=== PATIENT | male | born 1960 | race Caucasian/White ===

== ENCOUNTER 2018-01-31 05:28 | Outpatient (CLI) | payer BC, OTHER ==
[~2018-01-31] VITALS: Ht 185.4 cm; Wt 136.1 kg
[~2018-01-31 05:28] MED LIST: LISI20TA; OMG1KC
[2018-01-31] MEDS ORDERED: VALS1TAB PO (14:01)
[2018-01-31] MEDS ORDERED: NAPR-915 PO (14:01)
[2018-01-31] MEDS ORDERED: FLUT9.9S NS (14:01)
== END 2018-01-31 14:05 ==
LOC: PREOP 05:28
PROVIDERS: ATTEND Specialist
DX: Z01.818 Encounter for other preprocedural examination (principal); H26.40 Unspecified secondary cataract

== ENCOUNTER 2018-02-02 06:52 | Day surgery (SDC) | payer BC, OTHER ==
[~2018-02-02] VITALS: Ht 185.4 cm; Wt 136.1 kg
[~2018-02-02 06:52] MED LIST changes: +FLUT9.9S NS; +NAPR-915 PO; +VALS1TAB PO
[2018-02-02 06:55] VITALS: BP 123/80
[2018-02-02] MEDS: TROPICAMIDE 1% OPH SOLN (MYDRIACYL) 15 ML BTL OU PRN ×4 (07:08→07:35)
[2018-02-02] MEDS: PHENYLEPHRINE 10% OPHTH (NEO-SYN) 5 ML BTL OU PRN ×4 (07:08→07:35)
[2018-02-02] MEDS: TETRACAINE 0.5% OPHTH SOLN 4 ML BTL (SINGLE DOSE ONLY) OU PRN ×4 (07:08→07:35)
[2018-02-02 08:06] VITALS: BP 123/80
--- NOTE | 2018-02-02 08:08 | Ophthalmologist Pre-Op Note ---
Pre-Operative Progress Note H&P Reviewed The H&P was reviewed, patient examined and no changes noted. Date H&P Reviewed: Feb 02, 2018 Time H&P Reviewed: 07:59 Pre-Op Dx Secondary Cataract, Right Eye MANJU NEELY MD Feb 02, 2018 08:08
--- NOTE | 2018-02-02 08:09 | Ophthalmology Operative Report ---
YAG Capsulotomy PREOPERATIVE DIAGNOSIS: Secondary Cataract Left Eye POSTOPERATIVE DIAGNOSIS: Secondary Cataract Left Eye PROCEDURE: YAG Capsulotomy, left eye SURGEON: Bryan Neely ANESTHESIA: Topical anesthesia COMPLICATIONS: None ESTIMATED BLOOD LOSS: Minimal DESCRIPTION OF PROCEDURE: After proper informed consent was obtained, the patient's, a 57 male left eye received one drop of Tropicamide and one drop of Tetracaine. The patient was then placed at the YAG laser and using a power of [ 3.8] millijoules and [ 26] bursts were used to fashion a central capsulotomy. The patient tolerated the procedure well without complications and the patient's pressure was [12 ] shortly after the laser. BRYAN NEELY MD Feb 02, 2018 08:09
== END 2018-02-02 08:06 | disposition home or self-care (01) ==
LOC: SDC 06:52
PROVIDERS: ATTEND Specialist
DX: H26.40 Unspecified secondary cataract (principal); I10 Essential (primary) hypertension; Z87.891 Personal history of nicotine dependence